=== PATIENT | male | born 1985 | race Caucasian/White ===

== ENCOUNTER 2020-12-11 19:15 | Emergency (ER) | payer OTHER ==
[~2020-12-11] VITALS: Ht 177 cm; Wt 165.0 kg
[2020-12-11] MEDS ORDERED: BENZONATATE 100 MG (TESSALON) CAPSULE PO STA (19:41)
[2020-12-11] MEDS ORDERED: RT-ALBUTEROL HFA 8.5 GM INHALER IH PRN (19:45)
[2020-12-11] MEDS ORDERED: NS IV 1000 ML 1,000 ML IV SCH (19:45)
--- NOTE | 2020-12-11 19:48 | ED General ---
General Chief Complaint: COVID19 Suspect/Confirmed Stated Complaint: COVID+,LOW O2 Source of Information: Patient History of Present Illness Date Seen by Provider: Dec 11, 2020 Time Seen by Provider: 19:17 Initial Comments 35-year-old male presenting by private vehicle with complaints of Covid and coughing. He reports going to the [facility] and they checked his oxygen saturation and told him to come to the emergency department immediately. He reports that he has been taking Mucinex as well as Robitussin but continues to cough. The coughing is keeping him up and not letting him get rest. He has d ecreased appetite. He states that he has been coughing so much that his abdominal muscles are hurting. He occasionally is able to bring up some sputum. He reports having a fever of 101.9 prior to arrival. He is afebrile here in the ED. He is requesting something to stop his cough. 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 He had a test on December 03 and was told he had a positive result on December 04 but then started feeling sick and having cough and symptoms on December 05. He does not have a primary care provider and denies medical problems or any chronic medicines. Timing/Duration: 6-7 Days Severity: Moderate Associated Systoms: No Chest Pain; Cough; No Diaphoresis; Fever/Chills, Headaches, Loss of Appetite, Malaise; No Nausea/Vomiting, No Seizure; Shortness of Air; No Syncope, No Weakness Allergies and Home Medications Allergies Coded Allergies: No Known Drug Allergies (Unverified , 12/11/20) Patient Home Medication List Home Medication List Reviewed: Yes Azithromycin (Azithromycin) 500 Mg Tablet, 500 MG PO DAILY Prescribed by: NAFISA JOSUE on 12/11/202121 Benzonatate (Benzonatate) 200 Mg Capsule, 200 MG PO TID PRN for COUGH Prescribed by: NAFISA JOSUE on 12/11/202121 Promethazine HCl (Promethazine Tablet) 25 Mg Tablet, 25 MG PO Q6H PRN for NAUSEA/VOMITING Prescribed by: NAFISA JOSUE on 12/11/202121 Review of Systems Review of Systems Constitutional: chills, dizziness, fever, malaise EENTM: nose congestion Respiratory: cough; No hemoptysis; phlegm (occasional), short of breath; No stridor, No wheezing Cardiovascular: no symptoms reported Gastrointestinal: abdominal pain (abdominal wall pain from coughing); No diarrhea; loss of appetite; No nausea, No vomiting Genitourinary: No dysuria Musculoskeletal: other (general body aches) Skin: No rash Psychiatric/Neurological: See HPI Hematologic/Lymphatic: Denies Blood Clots Past Qfmbwhv-Kfodxt-Wcmgis Hx Patient Social History Tobacco Use?: No Substance use?: No Past Medical History Surgeries: No Respiratory: No Cardiac: No Neurological: No Gastrointestinal: No Musculoskeletal: No Endocrine: No Psychosocial: No Physical Exam Vital Signs Vital Signs - First Documented 12/11/20 20:27 Temp 36.1 Pulse 100 Resp 20 B/P (MAP) 142/78 (99) Pulse Ox 94 O2 Delivery Room Air Capillary Refill : Height, Weight, BMI Height: '" Weight: lbs. oz. kg; BMI Method: General Appearance: No Apparent Distress, Obese HEENT: PERRL/EOMI Neck: Full Range of Motion, Normal Inspection, Non Tender, Supple Respiratory: Chest Non Tender, Lungs Clear, Normal Breath Sounds, No Accessory Muscle Use, No Respiratory Distress Cardiovascular: Normal Peripheral Pulses, Tachycardia Gastrointestinal: Normal Bowel Sounds, No Pulsatile Mass, Soft; No Distended, No Guarding, No Rebound; Tenderness (abdominal wall tenderness) Rectal: Deferred Extremity: Normal Capillary Refill, Normal Inspection, Normal Range of Motion, No Pedal Edema Neurologic/Psychiatric: Alert, Oriented x3, 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 Norm as Tested Skin: Normal Color, Warm/Dry Focused Exam Lactate Level 12/11/20 19:33: Lactic Acid Level 1.41 Lactic Acid Level Laboratory Tests Test 12/11/20 19:33 Lactic Acid Level 1.41 MMOL/L (0.50-2.00) Progress/Results/Core Measures Suspected Sepsis SIRS Temperature: Pulse: Respiratory Rate: Laboratory Tests 12/11/20 19:33: White Blood Count 5.1 Blood Pressure / Mean: 12/11/20 19:33: Lactic Acid Level 1.41 Laboratory Tests 12/11/20 19:33: Creatinine 0.91, INR Comment 1.0, Platelet Count 116L, Total Bilirubin 0.6 Results/Orders Lab Results Laboratory Tests Test 12/11/20 19:33 Range/Units White Blood Count 5.1 4.3-11.0 10^3/uL Red Blood Count 5.18 4.30-5.52 10^6/uL Hemoglobin 14.2 13.3-17.7 g/dL Hematocrit 42 40-54 % Mean Corpuscular Volume 81 80-99 fL Mean Corpuscular Hemoglobin 27 25-34 pg Mean Corpuscular Hemoglobin Concent 34 32-36 g/dL Red Cell Distribution Width 13.2 10.0-14.5 % Platelet Count 116 L 130-400 10^3/uL Mean Platelet Volume 11.9 9.0-12.2 fL Immature Granulocyte % (Auto) 1 % Neutrophils (%) (Auto) 56 42-75 % Lymphocytes (%) (Auto) 34 12-44 % Monocytes (%) (Auto) 8 0-12 % Eosinophils (%) (Auto) 1 0-10 % Basophils (%) (Auto) 0 0-10 % Neutrophils # (Auto) 2.9 1.8-7.8 X 10^3 Lymphocytes # (Auto) 1.7 1.0-4.0 X 10^3 Monocytes # (Auto) 0.4 0.0-1.0 X 10^3 Eosinophils # (Auto) 0.1 0.0-0.3 10^3/uL Basophils # (Auto) 0.0 0.0-0.1 10^3/uL Immature Granulocyte # (Auto) 0.0 0.0-0.1 10^3/uL Prothrombin Time 13.2 12.2-14.7 SEC INR Comment 1.0 0.8-1.4 Activated Partial Thromboplast Time 25 24-35 SEC D-Dimer 0.31 0.00-0.49 UG/ML Sodium Level 131 L 135-145 MMOL/L Potassium Level 4.4 3.6-5.0 MMOL/L Chloride Level 99 98-107 MMOL/L Carbon Dioxide Level 22 21-32 MMOL/L Anion Gap 10 5-14 MMOL/L Blood Urea Nitrogen 11 7-18 MG/DL Creatinine 0.91 0.60-1.30 MG/DL Estimat Glomerular Filtration Rate 94 BUN/Creatinine Ratio 12 Glucose Level 202 H 70-105 MG/DL Lactic Acid Level 1.41 0.50-2.00 MMOL/L Calcium Level 8.5 8.5-10.1 MG/DL Corrected Calcium 8.5 8.5-10.1 MG/DL Total Bilirubin 0.6 0.1-1.0 MG/DL Aspartate Amino Transf (AST/SGOT) 151 H 5-34 U/L Alanine Aminotransferase (ALT/SGPT) 211 H 0-55 U/L Alkaline Phosphatase 77 40-136 U/L Troponin I < 0.30 <0.30 NG/ML C-Reactive Protein 2.09 H <0.50 MG/DL Total Protein 7.4 6.4-8.2 GM/DL Albumin 4.0 3.2-4.5 GM/DL My Orders Orders - NAFISA JOSUE MD Monitor-Rhythm Ecg Trace Only (12/11/20 19:39) Ed Iv/Invasive Line Start (12/11/20 19:39) Cbc With Automated Diff (12/11/20 19:39) Comprehensive Metabolic Panel (12/11/20 19:39) Crp Fs (12/11/20 19:39) Troponin I Fs (12/11/20 19:39) Lactic Acid Analyzer (12/11/20 19:39) Protime With Inr (12/11/20 19:39) Partial Thromboplastin Time (12/11/20 19:39) Ekg Tracing (12/11/20 19:39) Ns Iv 1000 Ml (Sodium Chloride 0.9%) (12/11/20 19:45) Covid-19 External Lab Results (12/11/20 19:39) Isolation Central Supply Req (12/11/20 19:39) Benzonatate Capsule (Tessalon Perles) (12/11/20 19:41) Albuterol Inhaler (Albuterol) (12/11/20 19:45) Nursing Communication (Order) (12/11/20 19:41) Fibrin Degradation Products (12/11/20 19:48) Chest 1 View Ap/Pa Only (12/11/20 20:03) Promethazine Tablet (Phenergan Tablet) (12/11/20 21:17) Azithromycin Tablet (Zithromax Tablet) (12/11/20 21:17) Medications Given in ED Current Medications Medications Dose Ordered Sig/Selwyn Route Start Time Stop Time Status Last Admin Dose Admin Albuterol Sulfate 2 PUFFS inhaled w... RTQ4HR PRN IH 12/11/20 19:45 12/11/20 19:52 8.5 GM Vital Signs/I&O 12/11/20 20:27 Temp 36.1 Pulse 100 Resp 20 B/P (MAP) 142/78 (99) Pulse Ox 94 O2 Delivery Room Air Capillary Refill : Progress Note #1: Progress Note Check labs, CXR and ECG. Give IVF for hydration and try inhaler with spacer and Tessalon perles Progress Note #2: Progress Note Unable to obtain IV access on first attempt and pt refused further IV attempts. Drinking water in ED without difficulty. Labs are stable for blood count. He has mild elevation of LFTs and Glucose on Chemistry. Negative lactic acid. Negative DDimer. Mild elevation of CRP. Chest xray without focal consolidation but has patchy changes consistent with COVID. Pt reports improvement in cough and breathing with treatment in ED and having head slightly elevated. Discharge on Phenergan to help with settling his stomach to try and help with appetite. Inhaler with spacer 2 puffs every 4 hours as needed for cough/shortness of breath. Tessalon Perles for cough. Azithromycin to cover for possible bacterial infection in addition to COVID. Counseled on follow up and return precautions. ECG Initial ECG Impression Date: Dec 11, 2020 Initial ECG Impression Time: 19:30 Initial ECG Rate: 102 Initial ECG Rhythm: S.Tach Initial ECG Comparisson: No Previous ECG Available Comment Sinus tachycardia with a rate of 102 bpm. FL interval 125 ms. Right axis deviation. QT interval 322 ms with a QTc interval [address] elevation. No prior tracing for comparison. Diagnostic Imaging Diagonstic Imaging: Xray Plain Films/CT/US/NM/MRI: chest Comments [facility]. [place], [place] NAME: GEETA ROBERTS Sudheer [facility] REC#: [id number] PT STATUS: REG ER : 1985 PHYSICIAN: NAFISA JOSUE MD ADMIT DATE: 12/11/20/ER FS Draft Date of Exam:12/11/20 CHEST 1 VIEW AP/PA ONLY Portable erect AP chest at 758 hours. INDICATION: Shortness of breath, Covid. There are no prior studies available for comparison. This exam is less than optimal as the mediastinum is obscured by the patient's chin. The heart size is within normal limits. There are faint areas of slight increased density in the right upper lobe and both lung bases. These findings are suspicious for mild pneumonia/atelectasis. There is no pleural effusion identified. The mediastinum is not widened. The osseous structures are intact. IMPRESSION: The findings do suggest mild pneumonia/atelectasis involving the right upper lobe and both lung bases. Clinical follow-up is recommended. Dictated on workstation # [id number] Dict: 12/11/202022 Trans: 12/11/202032 [id number] Interpreted by: LATASHA CRENSHAW MD Electronically signed by: Reviewed: Reviewed by Me Departure Impression Primary Impression: Cough Additional Impression: Acute respiratory disease due to COVID-19 virus Disposition: HOME, SELF-CARE Condition: Stable Departure-Patient Inst. Decision time for Depature: 21:18 Referrals: NO,LOCAL PHYSICIAN (PCP) Primary Care Physician [facility] Patient Instructions: COVID-19 ED, Cough, Adult ED, How to Use a Metered Dose Inhaler ED, How to Use a Spacer, Recovery After COVID-19 Add. Discharge Instructions: Make sure to stay well-hydrated and get plenty of rest. Use Phenergan or promethazine to help settle your stomach so you might have a better appetite. Take the full course of azithromycin or Zithromax to help cover for bacterial infection. Consider using a humidifier or vaporizer beside you while you are sleeping. You could also consider sleeping in a recliner or trying to prop up the head of your bed to help with your breathing. Continue with acetaminophen or ibuprofen if needed for fever and chills. For continued care and follow-up you could establish with a provider from [facility]. Call [phone] reach the [facility] clinic and get an appointment to follow-up either in [place] or [place] Use Albuterol inhaler 2 puffs in spacer up to every 4 hours as needed for cough and shortness of breath All discharge instructions reviewed with patient and/or family. Voiced understanding. Scripts Benzonatate (Benzonatate) 200 Mg Capsule 200 MG PO TID PRN for COUGH for 7 Days, #21 CAP 0 Refills Prov: NAFISA JOSUE MD 12/11/20 Promethazine HCl (Promethazine Tablet) 25 Mg Tablet 25 MG PO Q6H PRN for NAUSEA/VOMITING for 5 Days, #20 TAB 0 Refills Prov: NAFISA JOSUE MD 12/11/20 Azithromycin (Azithromycin) 500 Mg Tablet 500 MG PO DAILY for 4 Days, #4 TAB 0 Refills Prov: NAFISA JOSUE MD 12/11/20 Work/School Note: Work Release Form Date Seen in the Emergency Department: Dec 11, 2020 Return to Work: Dec 15, 2020 Restrictions: Return-No Fever (24hrs) Other Restrictions Listed Below: Return or when symptom/fever free x72 hours NAFISA JOSUE MD Dec 11, 2020 19:48
[2020-12-11 19:56] LABS: BASOPHILS % (AUTO) 0 % (0-10); EOSINOPHILS # (AUTO) 0.1 10^3/uL (0.0-0.3); EOSINOPHILS % (AUTO) 1 % (0-10); HEMATOCRIT 42 % (40-54); HEMOGLOBIN 14.2 g/dL (13.3-17.7); LYMPHOCYTES # (AUTO) 1.7 X 10^3 (1.0-4.0); LYMPHOCYTES % (AUTO) 34 % (12-44); MEAN CORPUSCULAR HEMOGLOBIN 27 pg (25-34); MEAN CORPUSCULAR HGB CONC 34 g/dL (32-36); MEAN CORPUSCULAR VOLUME 81 fL (80-99); MEAN PLATELET VOLUME 11.9 fL (9.0-12.2); MONOCYTES # (AUTO) 0.4 X 10^3 (0.0-1.0); MONOCYTES % (AUTO) 8 % (0-12); NEUTROPHILS # (AUTO) 2.9 X 10^3 (1.8-7.8); NEUTROPHILS % (AUTO) 56 % (42-75); PLATELET COUNT 116 10^3/uL (130-400); WHITE BLOOD COUNT 5.1 10^3/uL (4.3-11.0)
[2020-12-11 20:10] LABS: PROTHROMBIN TIME PATIENT 13.2 SEC (12.2-14.7)
[2020-12-11 20:11] LABS: ALANINE AMINOTRANSFERASE 211 U/L (0-55); ALKALINE PHOSPHATASE 77 U/L (40-136); BILIRUBIN,TOTAL 0.6 MG/DL (0.1-1.0); BUN/CREATININE RATIO 12; CALCIUM 8.5 MG/DL (8.5-10.1); CARBON DIOXIDE 22 MMOL/L (21-32); CHLORIDE 99 MMOL/L (98-107); CREATININE SERUM 0.91 MG/DL (0.60-1.30); GFR ESTIMATED 94; GLUCOSE 202 MG/DL (70-105); POTASSIUM 4.4 MMOL/L (3.6-5.0); SODIUM 131 MMOL/L (135-145); TOTAL PROTEIN 7.4 GM/DL (6.4-8.2)
--- NOTE | 2020-12-11 20:33 | Diagnostic Imaging Report ---
Portable erect AP chest at 758 hours. INDICATION: Shortness of breath, Covid. There are no prior studies available for comparison. This exam is less than optimal as the mediastinum is obscured by the patient's chin. The heart size is within normal limits. There are faint areas of slight increased density in the right upper lobe and both lung bases. These findings are suspicious for mild pneumonia/atelectasis. There is no pleural effusion identified. The mediastinum is not widened. The osseous structures are intact. IMPRESSION: The findings do suggest mild pneumonia/atelectasis involving the right upper lobe and both lung bases. Clinical follow-up is recommended. Dictated by: Dictated on workstation # [id number]
[2020-12-11] MEDS ORDERED: AZITHROMYCIN 250 MG TAB (ZITHROMAX) PO STA (21:17)
[2020-12-11] MEDS ORDERED: PROMETHAZINE 25 MG (PHENERGAN) TAB PO STA (21:17)
[2020-12-11] MEDS ORDERED: BENZ200C51 PO (21:22)
[2020-12-11] MEDS ORDERED: AZIT500T9 PO (21:22)
[2020-12-11] MEDS ORDERED: PROM25TA14 PO (21:22)
[2020-12-11 21:35] VITALS: BP 142/78
== END 2020-12-11 21:35 | disposition home or self-care (01) ==
LOC: ER FS 19:22
DX: U07.1 COVID-19 (principal); J06.9 Acute upper respiratory infection, unspecified; E66.9 Obesity, unspecified
CPT/HCPCS: 36415; 71045; 80053; 83605; 84484; 85025; 85379; 85610; 85730; 86141; 93005; 93041; 94640